=== PATIENT | male | born 1945 | race Caucasian/White ===

== ENCOUNTER → 2016-05-29 | Outpatient (CLI) | payer OTHER | LOC: FIMAGING 08:57 | PROVIDERS: ATTEND Orthopaedic Surgery | DX: Z01.818 Encounter for other preprocedural examination (principal); M17.11 Unilateral primary osteoarthritis, right knee; M25.461 Effusion, right knee; M23.41 Loose body in knee, right knee ==

== ENCOUNTER 2016-06-13 05:58 | Inpatient (IN) | payer OTHER ==
[2016-06-13] MEDS ORDERED: CHLORHEXIDINE GLUC HIBICLENS 118 ML BTL TP ONE (06:00)
[2016-06-13] MEDS ORDERED: CEFAZOLIN 2 GM/DEXTR 100 ML IV ONE (06:00)
[2016-06-13] MEDS ORDERED: ROPI/epiNEPH/KETOROLAC JOINT COCKTAIL IU ONE (06:00)
[2016-06-13] MEDS ORDERED: TRANEXAMIC ACID 3,000 MG in NS 50 ML IRR ONE (06:00)
[2016-06-13] MEDS ORDERED: FAMOTIDINE 20 MG TAB PO ONE (06:00)
[2016-06-13] MEDS ORDERED: DEXAMETHASONE 4 MG/ML VIAL IVP ONE (06:00)
[2016-06-13] MEDS ORDERED: ACETAMINOPHEN 325 MG TAB ONE (06:31)
[2016-06-13] MEDS ORDERED: LIDOCAINE 1% 2 ML INJ ONE (06:32)
[2016-06-13] MEDS ORDERED: LIDOCAINE 1% 5 ML SDV ID PRN (06:39)
[2016-06-13] MEDS ORDERED: LR 1,000 ML IV ONE (06:39)
[2016-06-13] MEDS ORDERED: TRANEXAMIC ACID 3,000 MG/50 ML BAG IRR ONE (06:42)
[2016-06-13] MEDS ORDERED: VANCOMYCIN 1 GM VIAL IV ONE (06:43)
[2016-06-13] MEDS ORDERED: PROPOFOL/EMULSION 500 MG/50 ML BOTTLE IV ONE (07:05)
[2016-06-13] MEDS ORDERED: fentaNYL 100 MCG/2 ML INJ ONE (07:05)
[2016-06-13] MEDS ORDERED: ONDANSETRON DISINTEGRATING 4 MG TAB PO PRN (07:16)
[2016-06-13] MEDS ORDERED: ONDANSETRON 4 MG/2 ML VIAL IVP PRN (07:16)
[2016-06-13] MEDS ORDERED: TEMAZEPAM 15 MG CAP PO PRN (07:16)
[2016-06-13] MEDS ORDERED: BISACODYL 10 MG SUPP PR PRN (07:16)
[2016-06-13] MEDS ORDERED: PROMETHAZINE HCL 25 MG SUPPR PR PRN (07:16)
[2016-06-13] MEDS ORDERED: METOCLOPRAMIDE 10 MG/2 ML VIAL IVP PRN (07:16)
[2016-06-13] MEDS ORDERED: DIPHENOXYLATE/ATROPINE LOMOTIL 1 TAB PO PRN (07:16)
[2016-06-13] MEDS ORDERED: CYCLOBENZAPRINE 10 MG TAB PO PRN (07:16)
[2016-06-13] MEDS ORDERED: POLYETHYLENE GLYCOL 3350 17 GM PKT PO PRN (07:16)
[2016-06-13] MEDS ORDERED: PHARMACY PAIN CONSULT 1 EA MISC PRN (07:16)
[2016-06-13] MEDS ORDERED: diphenhydrAMINE 25 MG CAP PO PRN (07:16)
[2016-06-13] MEDS ORDERED: MAGNESIUM HYDROXIDE 30 ML UDCUP PO PRN (07:16)
[2016-06-13] MEDS ORDERED: LACTULOSE 20 GM/30 ML UDCUP PO PRN (07:16)
[2016-06-13] MEDS ORDERED: LR 1,000 ML IV SCH (07:30)
[2016-06-13] MEDS ORDERED: BUPIVACAINE 0.5% 30 ML SDV ONE (07:53)
[2016-06-13] MEDS ORDERED: DEXAMETHASONE 4 MG/ML VIAL ONE (07:56)
[2016-06-13] MEDS ORDERED: PROPOFOL 200 MG/20 ML VIAL ONE (08:00)
--- NOTE | 2016-06-13 08:43 | POSTOPPROG ---
Post Op Note Date of Operation: 06/13/16 Surgeon: Disha Verdin Acls Nurse: stephanie verdin Anesthesiologist: dr. gasca Anesthesia: Spinal, Other (Specify) (adductor canal block) Pre-op Diagnosis: right knee OA Post-op Diagnosis: same Indication: right knee pain due to OA that failed conservative measures Procedure: R TKA robot assisted Findings: severe knee OA Inf/Abcess present in the surg proc area at time of surgery?: No EBL: 50-100
[2016-06-13] MEDS: SENNOSIDES/DOCUSATE SODIUM TAB PO SCH ×2 (10:50→21:59)
[2016-06-13] MEDS: ACETAMINOPHEN 325 MG TAB PO SCH ×2 (11:19→18:01)
[2016-06-13] MEDS: oxyCODONE IR 5 MG TAB PO PRN ×5 (11:20→21:59)
[2016-06-13] MEDS: ceFAZolin 2 GM/DEXTROSE 100 ML IV SCH ×2 (14:12→22:00)
[2016-06-13] MEDS: LISINOPRIL 20 MG TAB PO SCH (14:16)
[2016-06-13] MEDS: ASPIRIN 325 MG TAB PO SCH (21:58)
[2016-06-13] MEDS: FAMOTIDINE 20 MG TAB PO SCH (21:59)
[2016-06-14] MEDS: ACETAMINOPHEN 325 MG TAB PO SCH ×3 (00:06→12:12)
[2016-06-14 04:15] VITALS: TEMP 97.8
[2016-06-14] MEDS: oxyCODONE IR 5 MG TAB PO PRN ×3 (04:18→12:12)
[2016-06-14 05:36] LABS: HEMATOCRIT 43.6 % (40.0-51.0); HEMOGLOBIN 15.1 g/dL (13.7-17.5)
--- NOTE | 2016-06-14 06:21 | GOP ---
[f rep st] OPERATIVE REPORT DATE OF OPERATION: 06/13/2016 SURGEON: Florecita Rowan MD [employer] COACH: Yessenia Rowan PA-C. ANESTHESIA: Spinal. PREOPERATIVE DIAGNOSIS: Right knee osteoarthritis. POSTOPERATIVE DIAGNOSIS: Right knee osteoarthritis. PROCEDURE PERFORMED: Right total knee arthroplastywith computer navigation and robotic assist FINDINGS: ESTIMATED BLOOD LOSS: 30 cc. INDICATIONS: This is a 70-year-old male with severe and progressive pain and deformity of the right knee unresponsive to conservative care. Risks and benefits of the surgical intervention were explained in detail. DESCRIPTION OF PROCEDURE: The patient was brought to the operative room and placed on the table in the supine position. Spinal anesthesia was induced without difficulty. A pneumatic tourniquet was applied about the right proximal thigh, and the leg was prepped and draped in a sterile fashion. The leg peña was applied. After exsanguination by elevation the tourniquet was inflated to 275 mm of mercury. Incision was made anterior medial from the tibial tuberosity to a point 2 cm proximal to the superior pole of the patella. Medial parapatellar arthrotomy was carried out from the superior pole of the patella and posteriorly in line with the fibers of the Type II VMO. The medial collateral ligament was elevated and the infrapatellar fat pad was resected. The patella was everted and the articular surface was excised. A 35 mm patellar button was placed. Attention was turned first to the distal aspect of the right femur. At 3 cm proximal to the medial rise of the femur, 2 percutaneous half pins were placed for fixation of the femoral array. In a similar fashion, 2 pins were placed anteromedial on the tibia for fixation of the tibial array. External land marking and registration of the hip center was performed without difficulty. Internal femoral and tibial registration was carried out without difficulty and the femoral and tibial checkpoints were placed and verified for accuracy. Attention was turned to the femur. The foot print for the size 5 femoral component was cut with the saw using the [employer] robotic system and verified for accuracy against the CT based plan. In a similar fashion, saw was used to cut the footprint for the size 6 tibial component using the [employer] system and verified for accuracy against the CT based plan. The tibial articular surface was excised without difficulty, followed by the intercondylar box cut. The knee was extended and the remnants of the medial and lateral meniscus were excised. The posterior capsule was injected with ropivacaine, epinephrine and Toradol. A size 6 MIS mini-keel tibial tray was positioned. Trial reduction was then carried out. There was excellent range of motion, alignment, and stability using the 9 mm polyethylene. All trials were then removed. The joint was thoroughly irrigated and carefully dried. Two packages of cement and 2 grams of vancomycin were mixed in the vacuum mixer and placed on the fixation surfaces of all surfaces of the components. The components were implanted and all excess cement was thoroughly removed. The permanent 9 mm polyethylene was placed without difficulty. The tourniquet was deflated and all bleeders were coagulated. The wound was thoroughly irrigated and closed using interrupted sutures of 2-0 Vicryl for the joint capsule. The subcu was closed with 3-0 Vicryl and the skin with 4-0 Monocryl. Dermabond and Steri-Strips were applied followed by a compressive dressing. The patient was then moved from the operating room to the recovery room in good condition, having tolerated the procedure well. PATHOLOGY: Severe lateral compartment osteoarthritis. /[id number]/MODL MTDD
[2016-06-14] MEDS: SENNOSIDES/DOCUSATE SODIUM TAB PO SCH (08:50)
[2016-06-14] MEDS: LISINOPRIL 20 MG TAB PO SCH (08:50)
[2016-06-14] MEDS: ASPIRIN 325 MG TAB PO SCH (08:51)
[2016-06-14] MEDS: FAMOTIDINE 20 MG TAB PO SCH (08:51)
[2016-06-14 11:28] VITALS: BP 133/85; PULSE 72; RESP 18; O2SAT 92
--- NOTE | 2016-06-14 11:36 | SOAPPROG ---
SOAP Progress Note Assessment/Plan: Assessment: Patient is doing well POD 1 s/p R TKA Pain management: pain is well controlled on oral pain meds. VTE ppx: recommend aspirin daily for 3 weeks, cont JADYN and SCDs Anemia: level is expected initially postop. Asymptomatic. Continue to monitor D/c planning: d/c to home today pending release from PT Plan: 06/14/16 11:35 Subjective: Mono is doing well today, denies SOB, chest pain and N/V. Objective: Vital Signs Temp Pulse Resp BP Pulse Ox 36.6 C 72 18 133/85 H 92 06/14/16 11:24 06/14/16 11:24 06/14/16 11:24 06/14/16 11:24 06/14/16 11:24 Laboratory Results 06/14/16 04:11 06/13/16 06/14/16 06/15/16 05:59 05:59 05:59 Intake Total 3950 Output Total 1830 Balance 2120 RLE: incision dressing is clean and dry, NVI, +pf/df ICD10 Worksheet Patient Problems: Problems Problem Status Onset Primary localized osteoarthritis of right knee Acute
--- NOTE | 2016-06-14 12:22 | GDS ---
[f rep st] DISCHARGE SUMMARY ADMISSION DIAGNOSIS: Right knee osteoarthritis. DISCHARGE DIAGNOSIS: Right knee osteoarthritis. PROCEDURE: Right total knee arthroplasty, robot assisted. VTE PROPHYLAXIS: Aspirin recommended for 3 weeks daily. BRIEF DESCRIPTION OF HOSPITAL STAY: Patient was admitted for an elective joint arthroplasty. The p atient tolerated the procedure well and has passed physical therapy. The patient was given appropri ate antibiotic prophylaxis and venous thromboembolism prophylaxis. The patient's pain was well cont rolled on oral pain medication, patient was holding down food, and had urinated. Decision was made to discharge the patient. The patient was given post-operative prescriptions pre-operatively. PLAN: Please follow up as scheduled at Dr. Rowan's office on July 03 at 1:45 p.m. /[id number]/MODL
== END 2016-06-14 12:29 | disposition home or self-care (01) | DRG 470 ==
LOC: F3N 05:58
PROVIDERS: ADMIT Orthopaedic Surgery; ATTEND Orthopaedic Surgery
DX: M17.11 Unilateral primary osteoarthritis, right knee (principal)
CPT/HCPCS: 97116-GP; 97161-GP; 97165-GO; 97530-GP; C1713; G8978-GP-CJ; G8979-GP-CI; G8980-GP-CI; G8987-GO-CI; G8988-GO-CI; G8989-GO-CI; J0171; J0690; J1100; J1885; J2704; J2795; J3010; J3370